=== PATIENT | female | born 1960 | race Caucasian/White ===

== ENCOUNTER → 2016-08-18 | Outpatient (REF) | payer OTHER ==
[2016-08-18 14:20] LABS: TOTAL PROTEIN 7.7 GM/DL (6.4-8.2)
[2016-08-18 14:28] LABS: FOLATE > 24.0 NG/ML; VITAMIN B12 LEVEL 359 PG/ML
[2016-08-20 12:11] LABS: ALBUMIN % 63.6 % (55.8-66.1); GAMMA GLOBULIN % 9.8 % (11.1-18.8)
[2016-08-21 00:08] LABS: VITAMIN E LEVEL 11.2 mg/L (5.3-16.8)
== END | disposition home or self-care (01) ==
LOC: M LABNEURO 13:10
PROVIDERS: ATTEND Psychiatry & Neurology Neurology
DX: R20.0 Anesthesia of skin (principal); Z13.88 Encounter for screening for disorder due to exposure to contaminants

== ENCOUNTER → 2017-11-04 | Outpatient (REF) | payer OTHER ==
[2017-11-04 18:04] LABS: BASO % 0.5 % (0.0-1.0); EOS # 0.2 10^3/uL (0.0-0.50); EOS % 2.9 % (0.0-3.0); HEMATOCRIT 42.7 % (36.0-47.0); HEMOGLOBIN 13.8 g/dl (12.0-15.5); IMMATURE GRANULOCYTE % 0.2 % (0-3.0); LYMPH % 33.2 % (24.0-44.0); MEAN CORPUSCULAR HEMOGLOBIN 28.3 pg (27.0-33.0); MEAN CORPUSCULAR HGB CONC 32.3 g/dl (32.0-36.5); MEAN CORPUSCULAR VOLUME 87.7 fl (80.0-96.0); MONO # 0.3 10^3/uL (0.0-0.8); MONO % 5.7 % (0.0-5.0); NEUTROPHILS # 3.4 10^3/uL (1.8-7.7); NEUTROPHILS % 57.5 % (36.0-66.0); PLATELET COUNT, AUTOMATED 267 10^3/uL (150-450); RED BLOOD COUNT 4.87 10^6/uL (4.00-5.40); RED CELL DISTRIBUTION WIDTH 13.1 % (11.5-14.5); WHITE BLOOD COUNT 5.9 10^3/uL (4.0-10.0)
[2017-11-04 18:30] LABS: FOLATE > 24.0 NG/ML; VITAMIN B12 LEVEL 587 PG/ML
[2017-11-04 18:39] LABS: ALBUMIN 4.5 GM/DL (3.2-5.2); ALBUMIN/GLOBULIN RATIO 1.32 (1.00-1.93); ALKALINE PHOSPHATASE 124 U/L (45-117); ALT/SGPT 43 U/L (12-78); ANION GAP 8 MEQ/L (8-16); AST/SGOT 20 U/L (7-37); BILIRUBIN,TOTAL 0.3 MG/DL (0.2-1.0); BLOOD UREA NITROGEN 16 MG/DL (7-18); CALCIUM LEVEL 9.6 MG/DL (8.5-10.1); CARBON DIOXIDE LEVEL 27 MEQ/L (21-32); CHLORIDE LEVEL 106 MEQ/L (98-107); CPK CREATINE PHOSPHOKINASE 64 U/L (26-192); CREATININE FOR GFR 0.74 MG/DL (0.55-1.30); ESTIMATED AVERAGE GLUCOSE 123 MG/DL (60-110); FREE T4 0.85 NG/DL (0.76-1.46); GLOMERULAR FILTRATION RATE > 60.0 (>51); GLUCOSE, FASTING 94 MG/DL (70-100); HEMOGLOBIN A1c 5.9 %; POTASSIUM SERUM 4.1 MEQ/L (3.5-5.1); RHEUMATOID FACTOR QUANT < 10.0 IU/ML (<15.0); SODIUM LEVEL 141 MEQ/L (136-145); TOTAL PROTEIN 7.9 GM/DL (6.4-8.2)
[2017-11-04 18:48] LABS: ERYTHROCYTE SEDIMENTATION RATE 5 mm/hr (0-30)
[2017-11-08 14:25] LABS: ALBUMIN 4.98 GM/DL (3.29-5.55); ALPHA-1-GLOBULIN % 4.3 % (2.9-4.9); ALPHA-1-GLOBULINS 0.34 GM/DL (0.17-0.41); ALPHA-2-GLOBULINS 0.86 GM/DL (0.42-0.99); ALPHA-2-GLOBULINS % 10.9 % (7.1-11.8); BETA-1-GLOBULINS 0.51 GM/DL (0.28-0.60); BETA-1-GLOBULINS % 6.4 % (4.7-7.2); GAMMA GLOBULIN % 10.4 % (11.1-18.8); GAMMA GLOBULINS 0.82 GM/DL (0.65-1.58)
[2017-11-11 00:06] LABS: ANTINUCLEAR ANTIBODIES DIRECT Negative (Negative); METHYLMALONIC ACID 177 nmol/L (0-378); VITAMIN B1 LEVEL WHOLE BLOOD 205.7 nmol/L (66.5-200.0); VITAMIN B6,PYRIDOXAL PHOSPHATE 35.3 ug/L (2.0-32.8); VITAMIN E(ALPHA TOCOPHEROL) 11.9 mg/L (7.0-25.1); VITAMIN E(GAMMA TOCOPHEROL) 1.6 mg/L (0.5-5.5)
== END ==
LOC: M LABNEURO 12:05
DX: R20.0 Anesthesia of skin (principal); R53.1 Weakness; R56.9 Unspecified convulsions; R25.1 Tremor, unspecified
CPT/HCPCS: 82550

== ENCOUNTER 2020-01-29 12:17 | Outpatient (RCR) | payer OTHER | END 2020-01-30 | LOC: M ST 12:17 | PROVIDERS: ATTEND Specialist | DX: Z51.89 Encounter for other specified aftercare (principal); R49.0 Dysphonia ==

== ENCOUNTER 2020-02-29 14:00 | Outpatient (RCR) | payer OTHER | END 2020-03-01 | LOC: M ST 14:00 | PROVIDERS: ATTEND Specialist | DX: R49.0 Dysphonia (principal) ==

== ENCOUNTER 2020-03-14 08:00 | Outpatient (RCR) | payer OTHER | END 2020-04-01 | LOC: M ST 08:00 | PROVIDERS: ATTEND Specialist | DX: R49.0 Dysphonia (principal) ==